=== PATIENT | female | born 2000 | race Caucasian/White ===

== ENCOUNTER 2019-04-09 11:34 | Emergency (ER) | payer OTHER ==
[~2019-04-09] VITALS: Ht 162.6 cm; Wt 68.0 kg
[2019-04-09] MEDS ORDERED: ALYACEN (11:56)
[2019-04-09 12:43] LABS: BILIRUBIN,URINE NEGATIVE (NEGATIVE); CLARITY,URINE CLEAR; COLOR,URINE YELLOW; GLUCOSE, URINE (UA) NEGATIVE (NEGATIVE); KETONES,URINE 2+ (NEGATIVE); LEUKOCYTE ESTERASE ,URINE 2+ (NEGATIVE); NITRITE,URINE NEGATIVE (NEGATIVE); PH,URINE 7 (5-9); PROTEIN,URINE 1+ (NEGATIVE); UROBILINOGEN,URINE NORMAL (NORMAL)
[2019-04-09 12:51] LABS: RBC,URINE RARE /HPF
[2019-04-09 12:52] LABS: BACTERIA,URINE NEGATIVE /HPF
[2019-04-09 13:31] LABS: BASOPHILS % (AUTO) 0 % (0-10); EOSINOPHILS # (AUTO) 0.1 10^3/uL (0.0-0.3); EOSINOPHILS % (AUTO) 1 % (0-10); HEMATOCRIT 41 % (35-52); HEMOGLOBIN 13.9 G/DL (11.5-16.0); LYMPHOCYTES # (AUTO) 1.8 X 10^3 (1.0-4.0); LYMPHOCYTES % (AUTO) 25 % (12-44); MEAN CORPUSCULAR HEMOGLOBIN 31 PG (25-34); MEAN CORPUSCULAR HGB CONC 34 G/DL (32-36); MEAN CORPUSCULAR VOLUME 92 FL (80-99); MEAN PLATELET VOLUME 9.8 FL (7.4-10.4); MONOCYTES # (AUTO) 0.5 X 10^3 (0.0-1.0); MONOCYTES % (AUTO) 7 % (0-12); NEUTROPHILS # (AUTO) 5.1 X 10^3 (1.8-7.8); NEUTROPHILS % (AUTO) 68 % (42-75); PLATELET COUNT 292 10^3/uL (130-400); RED CELL DISTRIBUTION WIDTH 12.9 % (10.0-14.5); WHITE BLOOD COUNT 7.5 10^3/uL (4.3-11.0)
[2019-04-09 13:49] LABS: ALANINE AMINOTRANSFERASE 12 U/L (0-55); ALBUMIN 4.4 GM/DL (3.2-4.5); ALKALINE PHOSPHATASE 34 U/L (40-136); BUN/CREATININE RATIO 18; CALCIUM 9.6 MG/DL (8.5-10.1); CARBON DIOXIDE 25 MMOL/L (21-32); CHLORIDE 104 MMOL/L (98-107); CREATININE SERUM 0.84 MG/DL (0.60-1.30); GFR ESTIMATED > 60; GLUCOSE 88 MG/DL (70-105); POTASSIUM 4.2 MMOL/L (3.6-5.0); SODIUM 138 MMOL/L (135-145); TOTAL PROTEIN 7.6 GM/DL (6.4-8.2)
--- NOTE | 2019-04-09 14:11 | ED GU-Female ---
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 PT STATES SHE IS NOT DUE FOR HER PERIOD FOR ANOTHER WEEK. STATES SHE IS FEELING BLOATED. DOES NOT FEEL LIKE HER NORMAL PERIOD SYMPTOMS. LAST HAD INTERCOURSE A MONTH AGO. Source: patient Exam Limitations: no limitations History of Present Illness Date Seen by Provider: Apr 09, 2019 Time Seen by Provider: 12:30 Initial Comments 18 year old female who presents to the emergency room with complaints of vaginal spotting and cramping 1 week before her period was supposed to start. Denies saturating pads reports minimal spotting. Timing/Duration: yesterday Associated Symptoms: denies symptoms Allergies and Home Medications Allergies Coded Allergies: No Known Drug Allergies (Unverified , 04/09/19) Patient Home Medication List Home Medication List Reviewed: Yes Review of Systems Review of Systems Constitutional: see HPI; No chills, No fever Genitourinary: see HPI, other : No All Other Systemes Reviewed Negative Unless Noted: Yes Past Ijwktsl-Yqoeaj-Nqluvu Hx Past Med/Social Hx: Reviewed Nursing Past Med/Soc Hx Patient Social History Alcohol Use: Denies Use Recreational Drug Use: No Smoking Status: Never a Smoker Recent Foreign Travel: No Contact w/Someone Who Travel: No Recent Infectious Disease Expo: No Recent Hopitalizations: No Ebola Symptoms: Denies Symptoms Listed Immunizations Up To Date Tetanus Booster (TDap): Unknown PED Vaccines UTD: Yes Seasonal Allergies Seasonal Allergies: No Past Medical History Surgeries: No Respiratory: No Cardiac: No Neurological: No Genitourinary: No Gastrointestinal: No Musculoskeletal: No Endocrine: No HEENT: No Cancer: No Psychosocial: No Integumentary: No Blood Disorders: No Family Medical History Reviewed Nursing Family Hx Physical Exam Vital Signs Vital Signs - First Documented 04/09/19 11:48 Pulse 81 Resp 18 B/P (MAP) 133/95 Pulse Ox 100 O2 Delivery Room Air Capillary Refill : Height, Weight, BMI Height: 5'4.00" Weight: 150lbs. oz. 68.612650dl; 21.09 BMI Method:Stated General Appearance: WD/WN, no apparent distress Cardiovascular: normal peripheral pulses, regular rate, rhythm, no edema, no gallop, no JVD, no murmur Respiratory: chest non-tender, lungs clear, normal breath sounds, no respiratory distress, no accessory muscle use, respiratory distress Extremities: normal capillary refill Neurologic/Psychiatric: alert, normal mood/affect, oriented x 3 Skin: normal color, warm/dry Progress/Results/Core Measures Suspected Sepsis SIRS Temperature: Pulse: Respiratory Rate: Blood Pressure / Mean: Results/Orders Lab Results Vital Signs/I&O Capillary Refill : Departure Impression Primary Impression: Irregular menstrual cycle Disposition: HOME, SELF-CARE Condition: Stable/Unchanged Departure-Patient Inst. Decision time for Depature: 14:10 Referrals: NO,LOCAL PHYSICIAN (PCP/Family) Primary Care Physician Patient Instructions: IRREGULAR VAGINAL BLEEDING Add. Discharge Instructions: Follow-up with your women's health provider within 1 week for recheck. Return back to the emergency room for worsening vaginal bleeding, worsening symptoms, or any other concerns as needed. All discharge instructions reviewed with patient and/or family. Voiced understanding. RACHEL HUMPHRIES Apr 09, 2019 14:11
== END 2019-04-09 14:31 | disposition home or self-care (01) ==
LOC: ER 11:37
DX: N92.6 Irregular menstruation, unspecified (principal)
CPT/HCPCS: 36415; 80053; 81000; 84702; 85025; 99282

== ENCOUNTER 2019-07-31 15:45 | Emergency (ER) | payer OTHER ==
[~2019-07-31] VITALS: Ht 160 cm; Wt 65.7 kg
[~2019-07-31 15:45] MED LIST: ALYACEN
--- NOTE | 2019-07-31 18:04 | ED Chest Pain ---
General Chief Complaint: Respiratory Problems Stated Complaint: CP AND SOB Nursing Triage Note: PATIENT STATES THAT HE HAS BEEN HAVING CHEST PRESSURE AND SOB OFF AND ON FOR A FEW DAYS. SHE HAS NOT NOTICED ANYTHING MAKING IT BETTER OR WORSE. SHE THINKS IT COULD BE A SIDE EFFECT OF HER ANTI DEPRESSANT. 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 No history of this, she is otherwise healthy. She is nonsmoker. She was started on sertraline in May for anxiety, she does feel anxious when she has these episodes of chest pain and shortness of breath. Timing/Duration: 1-2 days Severity/Quality: moderate Radiation: no radiation Activities at Onset: none ASA po SPANISH SPEAKING NANNY: No NTG SL SPANISH SPEAKING NANNY: No Associated Symptoms: denies symptoms Allergies and Home Medications Allergies Coded Allergies: No Known Drug Allergies (Unverified , 04/09/19) Patient Home Medication List Home Medication List Reviewed: Yes Review of Systems Review of Systems Constitutional: see HPI EENTM: No Symptoms Reported Respiratory: No Symptoms Reported Cardiovascular: No Symptoms Reported Gastrointestinal: See HPI, Abdominal Pain Genitourinary: No Symptoms Reported Musculoskeletal: no symptoms reported Skin: no symptoms reported Psychiatric/Neurological: No Symptoms Reported Endocrine: No Symptoms Reported Hematologic/Lymphatic: No Symptoms Reported Past Kgngmjm-Dbstoy-Wvjjej Hx Patient Social History Alcohol Use: Rarely Uses Recreational Drug Use: No Smoking Status: Never a Smoker 2nd Hand Smoke Exposure: No Recent Foreign Travel: No Contact w/Someone Who Travel: No Recent Infectious Disease Expo: No Recent Hopitalizations: No Immunizations Up To Date Tetanus Booster (TDap): Unknown PED Vaccines UTD: Yes Seasonal Allergies Seasonal Allergies: No Past Medical History Surgeries: No Respiratory: No Cardiac: No Neurological: No Genitourinary: No Gastrointestinal: No Musculoskeletal: No Endocrine: No HEENT: No Cancer: No Psychosocial: Yes Anxiety, Depression Integumentary: No Blood Disorders: No Physical Exam Vital Signs Vital Signs - First Documented 07/31/19 16:27 Temp 36.7 Pulse 73 Resp 20 B/P (MAP) 118/76 (90) Pulse Ox 100 Capillary Refill : Less Than 3 Seconds Height, Weight, BMI Height: 5'4.00" Weight: 150lbs. oz. 68.511206ae; 25.00 BMI Method:Stated General Appearance: No Apparent Distress, WD/WN HEENT: PERRL/EOMI, TMs Normal Respiratory: No Accessory Muscle Use, No Respiratory Distress Cardiovascular: Regular Rate, Rhythm, Normal Peripheral Pulses Gastrointestinal: Normal Bowel Sounds, Non Tender, Soft Extremity: Normal Capillary Refill, Normal Inspection Neurologic/Psychiatric: Alert, Oriented x3 Skin: Normal Color, Warm/Dry Progress/Results/Core Measures Results/Orders Lab Results Laboratory Tests Test 07/31/19 18:30 Range/Units White Blood Count 8.5 4.3-11.0 10^3/uL Red Blood Count 4.17 L 4.35-5.85 10^6/uL Hemoglobin 13.0 11.5-16.0 G/DL Hematocrit 39 35-52 % Mean Corpuscular Volume 93 80-99 FL Mean Corpuscular Hemoglobin 31 25-34 PG Mean Corpuscular Hemoglobin Concent 34 32-36 G/DL Red Cell Distribution Width 13.0 10.0-14.5 % Platelet Count 258 130-400 10^3/uL Mean Platelet Volume 9.7 7.4-10.4 FL Neutrophils (%) (Auto) 66 42-75 % Lymphocytes (%) (Auto) 28 12-44 % Monocytes (%) (Auto) 5 0-12 % Eosinophils (%) (Auto) 1 0-10 % Basophils (%) (Auto) 0 0-10 % Neutrophils # (Auto) 5.6 1.8-7.8 X 10^3 Lymphocytes # (Auto) 2.4 1.0-4.0 X 10^3 Monocytes # (Auto) 0.4 0.0-1.0 X 10^3 Eosinophils # (Auto) 0.0 0.0-0.3 10^3/uL Basophils # (Auto) 0.0 0.0-0.1 10^3/uL Neutrophils % (Manual) 69 % Lymphocytes % (Manual) 27 % Monocytes % (Manual) 2 % Band Neutrophils 2 % Blood Morphology Comment NORMAL D-Dimer 0.32 0.00-0.49 UG/ML Sodium Level 137 135-145 MMOL/L Potassium Level 3.9 3.6-5.0 MMOL/L Chloride Level 106 98-107 MMOL/L Carbon Dioxide Level 22 21-32 MMOL/L Anion Gap 9 5-14 MMOL/L Blood Urea Nitrogen 8 7-18 MG/DL Creatinine 0.67 0.60-1.30 MG/DL Estimat Glomerular Filtration Rate > 60 BUN/Creatinine Ratio 12 Glucose Level 101 70-105 MG/DL Calcium Level 8.9 8.5-10.1 MG/DL Corrected Calcium 8.7 8.5-10.1 MG/DL Total Bilirubin 0.6 0.1-1.0 MG/DL Aspartate Amino Transf (AST/SGOT) 13 5-34 U/L Alanine Aminotransferase (ALT/SGPT) 11 0-55 U/L Alkaline Phosphatase 33 L 40-136 U/L Total Protein 7.0 6.4-8.2 GM/DL Albumin 4.2 3.2-4.5 GM/DL Serum Test, Qualitative NEGATIVE NEGATIVE My Orders Orders - MINERVA MARRERO APRN Hcg,Qualitative Serum (07/31/19 18:04) Cbc And Manual Diff (07/31/19 18:04) Comprehensive Metabolic Panel (07/31/19 18:04) Chest Pa/Lat (2 View) (07/31/19 18:04) Fibrin Degradation Products (07/31/19 18:04) Troponin I (07/31/19 18:04) Ekg Tracing (07/31/19 18:07) Vital Signs/I&O 07/31/19 16:27 Temp 36.7 Pulse 73 Resp 20 B/P (MAP) 118/76 (90) Pulse Ox 100 Blood Pressure Mean: 90 Departure Impression Primary Impression: Intermittent chest pain Additional Impression: Anxiety Disposition: 01 HOME, SELF-CARE Condition: Stable Departure-Patient Inst. Decision time for Depature: 19:00 Referrals: NO,LOCAL PHYSICIAN (PCP/Family) Primary Care Physician Patient Instructions: Anxiety, Adult (DC), Chest Pain (DC) Add. Discharge Instructions: 1. Your EKG, x-ray, labs are all normal. I suspect that her symptoms are related to anxiety/panic attacks. Review feel one of these episodes coming on, take one of the alprazolam (Xanax) and wait about 30 minutes, see if this resolves. Follow-up with [facility] or your family doctor within the next few weeks for recheck. Scripts Alprazolam (Xanax) 0.5 Mg Tablet 0.5 MG PO BID PRN for ANXIETY, #10 TAB Prov: MINERVA MARRERO APRN 07/31/19 MINERVA MARRERO APRN Jul 31, 2019 18:04
[2019-07-31 18:37] LABS: BASOPHILS % (AUTO) 0 % (0-10); EOSINOPHILS % (AUTO) 1 % (0-10); HEMATOCRIT 39 % (35-52); LYMPHOCYTES # (AUTO) 2.4 X 10^3 (1.0-4.0); LYMPHOCYTES % (AUTO) 28 % (12-44); MEAN CORPUSCULAR HEMOGLOBIN 31 PG (25-34); MEAN CORPUSCULAR HGB CONC 34 G/DL (32-36); MEAN CORPUSCULAR VOLUME 93 FL (80-99); MEAN PLATELET VOLUME 9.7 FL (7.4-10.4); MONOCYTES # (AUTO) 0.4 X 10^3 (0.0-1.0); MONOCYTES % (AUTO) 5 % (0-12); NEUTROPHILS # (AUTO) 5.6 X 10^3 (1.8-7.8); NEUTROPHILS % (AUTO) 66 % (42-75); PLATELET COUNT 258 10^3/uL (130-400); WHITE BLOOD COUNT 8.5 10^3/uL (4.3-11.0)
[2019-07-31 18:54] LABS: ALANINE AMINOTRANSFERASE 11 U/L (0-55); ALBUMIN 4.2 GM/DL (3.2-4.5); ALKALINE PHOSPHATASE 33 U/L (40-136); BILIRUBIN,TOTAL 0.6 MG/DL (0.1-1.0); BUN/CREATININE RATIO 12; CALCIUM 8.9 MG/DL (8.5-10.1); CARBON DIOXIDE 22 MMOL/L (21-32); CHLORIDE 106 MMOL/L (98-107); CREATININE SERUM 0.67 MG/DL (0.60-1.30); GFR ESTIMATED > 60; GLUCOSE 101 MG/DL (70-105); POTASSIUM 3.9 MMOL/L (3.6-5.0); SODIUM 137 MMOL/L (135-145)
[2019-07-31 18:55] LABS: BAND NEUTROPHILS 2 %; LYMPHOCYTES % (MANUAL) 27 %; MONOCYTES % (MANUAL) 2 %; NEUTROPHILS % (MANUAL) 69 %; RBC MORPH NORMAL
[2019-07-31] MEDS ORDERED: ALPR0.5T PO (19:01)
--- NOTE | 2019-07-31 19:09 | Diagnostic Imaging Report ---
INDICATION: Shortness of breath. Chest pain. EXAMINATION: PA and lateral chest. FINDINGS: The lungs are well aerated and clear. The heart is not enlarged. No pneumothorax or pleural effusion. No bony abnormality. IMPRESSION: Normal PA and lateral chest. Dictated by: Dictated on workstation # [id number]
[2019-07-31 19:12] VITALS: BP 127/83
== END 2019-07-31 19:13 | disposition home or self-care (01) ==
LOC: EDUNIT# 15:45 → ER 15:47
DX: R07.9 Chest pain, unspecified (principal); F41.9 Anxiety disorder, unspecified; F32.9 Major depressive disorder, single episode, unspecified
CPT/HCPCS: 36415; 71046; 80053; 84484; 84703; 85007; 85027; 85379; 93005